=== PATIENT | male | born 1990 | race Two or more races ===

== ENCOUNTER 2019-02-25 11:58 | Emergency (ER) | payer SELFPAY ==
[~2019-02-25] VITALS: Ht 205.7 cm; Wt 67.6 kg
[2019-02-25 12:36] LABS: BASO % 0 % (0-3); EOS # 0.1 x10^3/uL (0.0-0.7); EOS % 1 % (0-3); HEMATOCRIT 43.7 % (39.0-53.0); LYMPH # 2.3 x10^3/uL (1.0-4.8); LYMPH % 26 % (24-48); MEAN CORPUSCULAR HEMOGLOBIN 31 pg (25-35); MEAN CORPUSCULAR HGB CONC 34 g/dL (31-37); MEAN CORPUSCULAR VOLUME 89 fL (79-100); MONO # 0.3 x10^3/uL (0.0-1.1); MONO % 4 % (0-9); NEUT # 6.2 x10^3uL (1.8-7.7); NEUT % 70 % (31-73); PLATELET COUNT 286 x10^3/uL (140-400); RED CELL DISTRIBUTION WIDTH 13.7 % (11.5-14.5); WHITE BLOOD COUNT 8.9 x10^3/uL (4.0-11.0)
[2019-02-25 12:45] LABS: CREATININE ISTAT 0.8 mg/dL (0.5-1.4); HEMOGLOBIN ISTAT 15.6 g/dL (14-18); ION CA ISTAT 1.2 mmol/L (1.13-1.32); POTASSIUM ISTAT 3.6 mmol/L (3.5-5.0)
[2019-02-25] MEDS ORDERED: CONTRAST GIVEN. MC PRN (13:15)
[2019-02-25] MEDS ORDERED: IOHEXOL 300 MG/ML 100ML VIAL. IV ONE (13:15)
[2019-02-25] MEDS ORDERED: fentaNYL PF VIAL 100 MCG/2 ML VIAL IV ONE (13:45)
--- NOTE | 2019-02-25 13:51 | RAD ---
PQRS Compliance Statement: One or more of the following individualized dose reduction techniques were utilized for this examination: 1. Automated exposure control 2. Adjustment of the mA and/or kV according to patient size 3. Use of iterative reconstruction technique CT HEAD AND CERVICAL SPINE WITHOUT CONTRAST History: Fall from roof,LOC, head pain, neck pain, chest pain, back pain, ad pain Comparison: None. Procedure: Axial images are obtained of the head from the skull base through the vertex without IV contrast. Noncontrast helical CT of the cervical spine was performed. Axial, sagittal, and coronal reconstructions were obtained. Findings: The ventricles and sulci are normal for the patient's age. No mass-effect, midline shift, hemorrhage or obvious acute infarction is identified. Basilar cisterns are patent. Bone windows demonstrate no significant calvarial abnormality. Mucosal thickening of the bilateral maxillary sinuses. Mastoid air cells are well aerated. There is no evidence of acute fracture or acute malalignment of the cervical spine. There is well-corticated chronic appearing type II odontoid fracture. The anterior fracture fragments abut, but there is separation of the posterior portion by 5 mm craniocaudal. The vertebral body height and alignment are maintained. No perched or jumped facets. Craniovertebral junction is intact. No disc space narrowing or degenerative changes are seen. Visualized soft tissues of the neck demonstrate no significant abnormalities. The visualized lung apices are clear. IMPRESSION: 1. No acute intracranial abnormality. 2. No acute fracture of the cervical spine. 3. Chronic nonunited type II odontoid fracture. Electronically signed by: Surjit Tena MD (02/25/2019 1:47 PM) [id number]
--- NOTE | 2019-02-25 14:09 | RAD ---
CT CHEST ABD PELVIS W/CONTRAST Indication: Fall from roof, LOC, head pain, neck pain, chest pain, back pain, abdomen pain
IV OMNI 300 75 MLS
Exposure: One or more of the following individualized dose reduction techniques were utilized for this examination: 1. Automated exposure control 2. Adjustment of the mA and/or kV according to patient size 3. Use of iterative reconstruction technique. Technique: Intravenous contrast was given. No oral contrast per request. Comparison: None Chest findings: Thyroid is symmetric. No significant lymph node enlargement. No pericardial effusion. No pleural effusion. No infiltrate or dominant mass identified in either lung. Minimal dependent atelectasis. Trachea and mainstem bronchi are patent. No evidence of a displaced rib fracture although a focal area of pain or tenderness is not known. Deformity of the left clavicle probably due to an old fracture appears chronic. There is mild superior endplate irregularity and anterior wedging of the approximate T11 vertebral body, has a chronic appearance unless there is specific concern for an acute fracture this level, but there is no evidence of an acute cortical step-off. Alignment maintained. Abdomen pelvis findings: Liver and spleen are unremarkable. Pancreas unremarkable. No evidence of adrenal mass. Kidneys demonstrate symmetric enhancement without hydronephrosis or focal lesion. No calcified gallstone. Aorta is nonaneurysmal. No significant lymph node enlargement. The stomach is distended with food. No significant small bowel distention. Moderate retained stool in the colon and rectum. No evidence of acute colitis. Mild diverticulosis. Appendix appears normal. No evidence of pneumoperitoneum or ascites. Vertebral body height in the lumbar spine is maintained as is alignment. No evidence of acute fracture or bone destruction. IMPRESSION: 1. No evidence of acute abnormality in the chest, abdomen or pelvis. 2. Mild anterior wedging and endplate irregularity at T11 is likely chronic, unless symptoms suggest a small acute fracture here. Electronically signed by: Keven Pham MD (02/25/2019 2:06 PM) [id number]
--- NOTE | 2019-02-25 15:41 | PHYS DOC ---
Past Medical History Past Medical History: No Pertinent History Past Surgical History: Other Additional Past Surgical Histo: hernia Alcohol Use: None Drug Use: None Adult General Chief Complaint Chief Complaint: TRAUMA ALERT HPI HPI Patient is a 28 year old M who presents for fall from roof. He was working up there when he fell. He landed on his back and head. He denies numbness/tingling. He has pain all over his abd and chest though. And all over his back. He denies LOC. 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 Review of Systems Review of Systems Constitutional: Denies fever or chills Eyes: Denies change in visual acuity, redness, or eye pain HENT: Denies nasal congestion or sore throat Respiratory: Denies cough or shortness of breath Cardiovascular: No additional information not addressed in HPI GI: Denies abdominal pain, nausea, vomiting, bloody stools or diarrhea : Denies dysuria or hematuria Musculoskeletal: Denies back pain or joint pain Integument: Denies rash or skin lesions Neurologic: Denies headache, focal weakness or sensory changes Endocrine: Denies polyuria or polydipsia All other systems were reviewed and found to be within normal limits, except as documented in this note. Current Medications Current Medications Current Medications Medications (Trade) Dose Ordered Sig/Pretty Start Time Stop Time Status Last Admin Dose Admin Fentanyl Citrate (Fentanyl 2ml Vial) 50 mcg 1X ONCE 02/25/19 13:45 02/25/19 13:46 DC 02/25/19 14:29 50 MCG Info (CONTRAST GIVEN -- Rx MONITORING) 1 each PRN DAILY PRN 02/25/19 13:15 02/27/19 13:14 Iohexol (Omnipaque 300 Mg/ml) 75 ml 1X ONCE 02/25/19 13:15 02/25/19 13:16 DC 02/25/19 13:26 75 ML Allergies Allergies Allergies Coded Allergies Type Severity Reaction Last Updated Verified No Known Drug Allergies 02/25/19 No Physical Exam Physical Exam Constitutional: Well developed, well nourished, no acute distress, non-toxic appearance. HENT: Normocephalic, atraumatic, bilateral external ears normal, oropharynx moist, no oral exudates, nose normal. Eyes: PERRLA, EOMI, conjunctiva normal, no discharge. Neck: Cervical collar in place. Cardiovascular:Heart rate regular rhythm, no murmur Lungs & Thorax: Bilateral breath sounds clear to auscultation Abdomen: Bowel sounds normal, soft, no tenderness, no masses, no pulsatile masses. Pelvis stable. Skin: Warm, dry, no erythema, no rash. Back: No tenderness, no CVA tenderness. Extremities: No tenderness, no cyanosis, no clubbing, ROM intact, no edema. All long bones palpated, no deformities or instability. Neurologic: Alert and oriented X 3, normal motor function, normal sensory function, no focal deficits noted. 5/5 strength bilat upper and lower extremities, sensation intact. Psychologic: Affect normal, judgement normal, mood normal. Current Patient Data Vital Signs Vital Signs Date Time Temp Pulse Resp B/P (MAP) Pulse Ox O2 Delivery O2 Flow Rate FiO2 02/25/19 17:07 82 20 124/69 (87) 97 Room Air 02/25/19 12:06 98.1 98.1 Lab Values Laboratory Tests Test 02/25/19 12:29 02/25/19 12:34 White Blood Count 8.9 x10^3/uL (4.0-11.0) Red Blood Count 4.90 x10^6/uL (4.30-5.70) Hemoglobin 15.0 g/dL (13.0-17.5) Hematocrit 43.7 % (39.0-53.0) Mean Corpuscular Volume 89 fL (79-100) Mean Corpuscular Hemoglobin 31 pg (25-35) Mean Corpuscular Hemoglobin Concent 34 g/dL (31-37) Red Cell Distribution Width 13.7 % (11.5-14.5) Platelet Count 286 x10^3/uL (140-400) Neutrophils (%) (Auto) 70 % (31-73) Lymphocytes (%) (Auto) 26 % (24-48) Monocytes (%) (Auto) 4 % (0-9) Eosinophils (%) (Auto) 1 % (0-3) Basophils (%) (Auto) 0 % (0-3) Neutrophils # (Auto) 6.2 x10^3uL (1.8-7.7) Lymphocytes # (Auto) 2.3 x10^3/uL (1.0-4.8) Monocytes # (Auto) 0.3 x10^3/uL (0.0-1.1) Eosinophils # (Auto) 0.1 x10^3/uL (0.0-0.7) Basophils # (Auto) 0.0 x10^3/uL (0.0-0.2) POC Hemoglobin 15.6 g/dL (14-18) POC Hematocrit 46 % (37-52) POC Sodium 139 mmol/L (135-145) POC Potassium 3.6 mmol/L (3.5-5.0) POC Chloride 101 mmol/L (98-110) POC Total CO2 27 mmol/L (23-32) Anion Gap 15 mmol/L (6-14) H POC Blood Urea Nitrogen 18 mg/dL (8-26) POC Creatinine 0.8 mg/dL (0.5-1.4) Glucose Level 175 mg/dL (70-99) H POC Ionized Calcium (Owen) 1.20 mmol/L (1.13-1.32) Laboratory Tests 02/25/19 12:29 Laboratory Tests 02/25/19 12:34 EKG EKG [] Radiology/Procedures Radiology/Procedures CT HEAD AND CERVICAL SPINE WITHOUT CONTRAST History: Fall from roof,LOC, head pain, neck pain, chest pain, back pain, ad pain Comparison: None. Procedure: Axial images are obtained of the head from the skull base through the vertex without IV contrast. Noncontrast helical CT of the cervical spine was performed. Axial, sagittal, and coronal reconstructions were obtained. Findings: The ventricles and sulci are normal for the patient's age. No mass-effect, midline shift, hemorrhage or obvious acute infarction is identified. Basilar cisterns are patent. Bone windows demonstrate no significant calvarial abnormality. Mucosal thickening of the bilateral maxillary sinuses. Mastoid air cells are well aerated. There is no evidence of acute fracture or acute malalignment of the cervical spine. There is well-corticated chronic appearing type II odontoid fracture. The anterior fracture fragments abut, but there is separation of the posterior portion by 5 mm craniocaudal. The vertebral body height and alignment are maintained. No perched or jumped facets. Craniovertebral junction is intact. No disc space narrowing or degenerative changes are seen. Visualized soft tissues of the neck demonstrate no significant abnormalities. The visualized lung apices are clear. IMPRESSION: 1. No acute intracranial abnormality. 2. No acute fracture of the cervical spine. 3. Chronic nonunited type II odontoid fracture. CT CHEST ABD PELVIS W/CONTRAST Indication: Fall from roof, LOC, head pain, neck pain, chest pain, back pain, abdomen pain
IV OMNI 300 75 MLS
Exposure: One or more of the following individualized dose reduction techniques were utilized for this examination: 1. Automated exposure control 2. Adjustment of the mA and/or kV according to patient size 3. Use of iterative reconstruction technique. Technique: Intravenous contrast was given. No oral contrast per request. Comparison: None Chest findings: Thyroid is symmetric. No significant lymph node enlargement. No pericardial effusion. No pleural effusion. No infiltrate or dominant mass identified in either lung. Minimal dependent atelectasis. Trachea and mainstem bronchi are patent. No evidence of a displaced rib fracture although a focal area of pain or tenderness is not known. Deformity of the left clavicle probably due to an old fracture appears chronic. There is mild superior endplate irregularity and anterior wedging of the approximate T11 vertebral body, has a chronic appearance unless there is specific concern for an acute fracture this level, but there is no evidence of an acute cortical step-off. Alignment maintained. Abdomen pelvis findings: Liver and spleen are unremarkable. Pancreas unremarkable. No evidence of adrenal mass. Kidneys demonstrate symmetric enhancement without hydronephrosis or focal lesion. No calcified gallstone. Aorta is nonaneurysmal. No significant lymph node enlargement. The stomach is distended with food. No significant small bowel distention. Moderate retained stool in the colon and rectum. No evidence of acute colitis. Mild diverticulosis. Appendix appears normal. No evidence of pneumoperitoneum or ascites. Vertebral body height in the lumbar spine is maintained as is alignment. No evidence of acute fracture or bone destruction. IMPRESSION: 1. No evidence of acute abnormality in the chest, abdomen or pelvis. 2. Mild anterior wedging and endplate irregularity at T11 is likely chronic, unless symptoms suggest a small acute fracture here. Impressions: MRI of the cervical spine without contrast 02/25/2019 CLINICAL HISTORY: Patient fell from wrist earlier today. Abnormality at C2 seen on a CT scan. TECHNIQUE: Unenhanced T1-weighted, T2-weighted and inversion recovery sagittal and gradient echo and T2-weighted axial images of the cervical spine were obtained. FINDINGS: Comparison is made to patient's CT scan of the cervical spine performed earlier today. Some of the images are degraded by patient motion. 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 This is angulated anteriorly. No displacement into the central spinal canal is seen. There is no MRI evidence of an acute fracture of the cervical vertebrae. There is mild straightening of the normal cervical lordosis. Minimal lateral curvature of the cervical spine is seen convex to the right. The morphology and signal characteristics of all the disks of the cervical spine are within normal limits. No definite area of abnormal signal intensity is seen involving the cervical spinal cord. On the axial images throughout the cervical disc spaces no significant degenerative changes are seen. No area of significant central spinal canal or neural foraminal stenosis is noted. 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 This is angulated anteriorly. No displacement of the central spinal canal is seen. There is no MRI evidence of an acute fracture of the cervical vertebra. Course & Med Decision Making Course & Med Decision Making Pertinent Labs and Imaging studies reviewed. (See chart for details) 28 y/o M presents for fall from roof. Extremities without pain or deformity. CTLS spines without midline tenderness. CTs as above. Discussed CT results with Dr. Hagen's [facility] who recs MRI. Stat MRI ordered. Stat MRI results as above. Discussed with Dr. Hagen who recs flex ex views. Flex ex views ordered. Care transitioned to Dr. Campuzano at 1800 with xrays pending. Discussed plan with pt. Pain improved. Dragon Disclaimer Dragon Disclaimer This electronic medical record was generated, in whole or in part, using a voice recognition dictation system. Departure Departure Impression: Primary Impression: Fall Referrals: NO PCP (PCP) JEROME YEBOAH MD Feb 25, 2019 15:41
--- NOTE | 2019-02-25 16:21 | RAD ---
MRI of the cervical spine without contrast 02/25/2019 CLINICAL HISTORY: Patient fell from wrist earlier today. Abnormality at C2 seen on a CT scan. TECHNIQUE: Unenhanced T1-weighted, T2-weighted and inversion recovery sagittal and gradient echo and T2-weighted axial images of the cervical spine were obtained. FINDINGS: Comparison is made to patient's CT scan of the cervical spine performed earlier today. Some of the images are degraded by patient motion. 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 This is angulated anteriorly. No displacement into the central spinal canal is seen. There is no MRI evidence of an acute fracture of the cervical vertebrae. There is mild straightening of the normal cervical lordosis. Minimal lateral curvature of the cervical spine is seen convex to the right. The morphology and signal characteristics of all the disks of the cervical spine are within normal limits. No definite area of abnormal signal intensity is seen involving the cervical spinal cord. On the axial images throughout the cervical disc spaces no significant degenerative changes are seen. No area of significant central spinal canal or neural foraminal stenosis is noted. 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 This is angulated anteriorly. No displacement of the central spinal canal is seen. There is no MRI evidence of an acute fracture of the cervical vertebra. Electronically signed by: Tee Castanon MD (02/25/2019 4:18 PM) [id number]
--- NOTE | 2019-02-25 18:36 | RAD ---
2 view C-spine HISTORY: OS Odontoideum Lateral flexion and extension views the C-spine were obtained There is positive done TM is better seen on the February 25, 2019 CT. The vertebral bodies are aligned. There is no loss vertebral stature is no prevertebral soft tissue swelling. There is abnormal movement of C1 and the os odontoideum anteriorly with flexion. IMPRESSION: Abnormal movement anteriorly of C1 and the ununited dens anteriorly with flexion. Electronically signed by: Cristhian Avila III, MD (02/25/2019 6:33 PM) [facility]
[2019-02-25 20:22] VITALS: BP 125/65
== END 2019-02-25 20:23 | disposition home or self-care (01) ==
LOC: ER 11:58
DX: R07.89 Other chest pain (principal); R10.9 Unspecified abdominal pain; R51 Headache; M54.2 Cervicalgia; M54.89 Other dorsalgia; G89.11 Acute pain due to trauma; W17.89XA Other fall from one level to another, initial encounter; Y93.89 Activity, other specified; Y92.89 Other specified places as the place of occurrence of the external cause; Y99.8 Other external cause status
CPT/HCPCS: 36415; 70450; 71260; 72040; 72125; 72141; 74177; 80047; 85025; 96374; 99285; J3010; Q9967